=== PATIENT | male | born 1960 | race Hispanic/Latino ===

== ENCOUNTER 2022-07-17 16:35 | Outpatient (CLI) | payer OTHER | END 2022-07-17 16:36 | disposition home or self-care (01) | LOC: SCSRAD 16:35 | PROVIDERS: ATTEND Nurse Practitioner Family | DX: M54.42 Lumbago with sciatica, left side (principal); M47.896 Other spondylosis, lumbar region | CPT/HCPCS: 72100 ==

== ENCOUNTER 2022-08-31 14:43 | Outpatient (CLI) | payer OTHER | END 2022-08-31 14:44 | disposition home or self-care (01) | LOC: SCSMRI 14:43 | PROVIDERS: ATTEND Orthopaedic Surgery | DX: M48.061 Spinal stenosis, lumbar region without neurogenic claudication (principal) | CPT/HCPCS: 72148 ==

== ENCOUNTER 2023-04-23 09:14 | Outpatient (CLI) | payer OTHER | END 2023-04-23 09:15 | disposition home or self-care (01) | LOC: SCSRAD 09:14 | PROVIDERS: ATTEND Nurse Practitioner Family | DX: J06.9 Acute upper respiratory infection, unspecified (principal) | CPT/HCPCS: 71046 ==